=== PATIENT | female | born 1930 | race Caucasian/White ===

== ENCOUNTER → 2018-03-02 | Outpatient (CLI) | payer MEDICARE ==
[~2018-03-02] MED LIST: ACET325 PO; AMLO5 PO; ASPI81CH PO; ASPI81EC PO; CEPH500 PO; CITA20 PO; CYCL10; CYCL10 PO; DIAZ10; DIAZ10 PO; DIAZ2; Desyrel50 MG PO; Diazepam10 MG PO; FAMO20 PO; FENT25TP TOP; FOLI400 PO; FOLIC ACID PO; HYDACE5 PO; HYDACE5325; HYDACE5325 PO; HYDMOR2 PO; HYDR1TAB94 PO; Hydrocodone-Ap1 EA23 PO; IBUP800 PO; LIDO5TP TOP; LISI5 PO; METO25 PO; METO50 PO; METTREX2.5 PO; OMEP20ER PO; OXYACE5T PO; OXYC1TAB11; PRED20 PO; QUET25 PO; ROFE25; RXTRAM50 PO; STOOL SOFTENER1 EAC1 PO; TRAM50 PO; TRAZ50; TRAZ50 PO; VERA240ER PO; VERA240ERA; VERAPAMIL; VITAMIN D31000 UNIT PO; VITAMIN D32000 UNIT PO; Vibramycin100 MG PO; Vitamin C1000 M1 PO
[2018-03-02 18:08] LABS: Hematocrit 44.2 % (33.0-51.0); Hemoglobin 14.4 g/dL (11.5-16.0)
[2018-03-02 18:27] LABS: Bun/Creatinine Ratio 22.7 (12.0-20.0); Calcium, Blood 9.2 mg/dL (8.5-10.1); Creatinine, Blood 1.5 mg/dL (0.40-1.00); Potassium, Blood 4.6 mmol/L (3.5-5.5)
== END | disposition home or self-care (01) ==
LOC: LAB EV 17:57 → LAB SHORT 17:57
DX: N18.3 Chronic kidney disease, stage 3 (moderate) (principal)
CPT/HCPCS: 36415; 80048; 85014; 85018

== ENCOUNTER 2018-09-14 12:53 | Day surgery (SDC) | payer MEDICARE ==
[~2018-09-14] VITALS: Ht 162.6 cm; Wt 82.6 kg
--- NOTE | 2018-09-14 13:24 | NUR ---
09/14/18 1324 Huma Enriquez PATIENT UNSURE ABOUT MOST MEDICATIONS AND WETHER OR NOT SHE TAKES THEM
== END 2018-09-14 14:50 | disposition home or self-care (01) ==
LOC: ORSCSDS 12:53
PROVIDERS: Anesthesiology
PROC: 3E0R33Z Introduction of Anti-inflammatory into Spinal Canal, Percutaneous Approach (ICD-10-PCS; principal; 2018-09-14 14:15)
DX: M51.16 Intervertebral disc disorders with radiculopathy, lumbar region (principal); M48.061 Spinal stenosis, lumbar region without neurogenic claudication; I10 Essential (primary) hypertension; F32.9 Major depressive disorder, single episode, unspecified; F03.90 Unspecified dementia, unspecified severity, without behavioral disturbance, psychotic disturbance, mood disturbance, and anxiety; D64.9 Anemia, unspecified; E66.01 Morbid (severe) obesity due to excess calories; Z68.31 Body mass index [BMI] 31.0-31.9, adult; Z79.82 Long term (current) use of aspirin; Z79.899 Other long term (current) drug therapy
CPT/HCPCS: J1040; J1100